=== PATIENT | female | born 1985 | race Caucasian/White ===

== ENCOUNTER 2020-10-31 05:14 | Day surgery (SDC) | payer OTHER ==
[2020-10-30 11:08] VITALS: BMI 42.3
[2020-10-31] MEDS ORDERED: ROCURONIUM BROMIDE 50 MG/5 ML SYRINGE ONE (10:49)
[2020-10-31] MEDS ORDERED: fentaNYL CITRATE 250 MCG/5 ML VIAL ONE (10:49)
[2020-10-31] MEDS ORDERED: DEXAMETHASONE SOD PHOSPHATE 4 MG/1 ML VIAL ONE ×2 (10:49→10:50)
[2020-10-31] MEDS ORDERED: PROPOFOL 20 ML ONE (10:49)
[2020-10-31] MEDS ORDERED: LIDOCAINE HCL/PF 2% SDV 5ML VIAL ONE (10:49)
[2020-10-31] MEDS ORDERED: MIDAZOLAM HCL 2 MG/2 ML SINGLE DOSE VIAL ONE (10:50)
[2020-10-31] MEDS ORDERED: ceFAZolin 2 GRAM PREMIX BAG IVPB ONE (11:22)
[2020-10-31] MEDS ORDERED: ceFAZolin SODIUM 1 GM VIAL ONE (11:23)
[2020-10-31] MEDS ORDERED: NEOSTIGMINE METHYLSULFATE 0.5 MG/ML - 10 ML MDV ONE (12:14)
[2020-10-31] MEDS ORDERED: GLYCOPYRROLATE 0.2 MG/1 ML VIAL ONE (12:14)
[2020-10-31] MEDS ORDERED: KETOROLAC TROMETHAMINE 30 MG/1 ML VIAL ONE (12:14)
[2020-10-31] MEDS ORDERED: ONDANSETRON 4 MG/2 ML VIAL IVPUSH PRN (13:57)
[2020-10-31] MEDS ORDERED: oxyCODONE HCL 5 MG TABLET PO PRN (13:57)
[2020-10-31] MEDS ORDERED: LACTATED RINGERS SOLUTION 1,000 ML IV SCH (14:00)
[2020-10-31 17:19] VITALS: BP 126/80; PULSE 87; TEMP 97.2
== END 2020-10-31 16:30 | disposition home or self-care (01) ==
LOC: JASU-SURG 05:14 → EDSTATUS 10:00 → JASU-SURG 16:30
PROVIDERS: ATTEND Specialist
PROC: 0UB04ZZ Excision of Right Ovary, Percutaneous Endoscopic Approach (ICD-10-PCS; principal; 2020-10-31 09:30)
DX: N83.201 Unspecified ovarian cyst, right side (principal); E66.9 Obesity, unspecified
CPT/HCPCS: 81025; 86850; 86900; 86901; 88108; 88307-TC; 94760